=== PATIENT | male | born 1945 | race Caucasian/White ===

== ENCOUNTER 2020-04-20 13:53 | Outpatient (CLI) | payer MEDICARE, SELFPAY ==
--- NOTE | 2020-04-27 15:08 | WPDPFTINT ---
PFT Interpretation PFT Interpretation: DOS: 04/20/2020 REQUESTING: Dr Mitchell REASON FOR TESTING: shortness of breath PULMONARY FUNCTION TESTS Results are reliable and reproducible. Spirometry: FEV1 is 112%, FVC 93%, FEV1% all are normal. No airflow obstruction. No change with bronchodilator. Lung volumes: TLC 108%. Rv/TLC is increased indicating air trapping. Increased airway resistance. Diffusion: DLCO 111%, normal. Flow volume loop: Normal. IMPRESSION: Normal spirometry, air trapping is present which indicates an obstructive process. Normal diffusion. Lack of response to bronchodilator should not preclude use if clinically indicated. Radha Champagne MD
== END 2020-04-20 13:54 | disposition home or self-care (01) ==
LOC: ANHPFT 13:54
PROVIDERS: Visit Provider Family Medicine
DX: R06.02 Shortness of breath (principal)
CPT/HCPCS: 94060; 94726; 94729

== ENCOUNTER → 2020-05-12 13:44 | Outpatient (CLI) | payer MEDICARE, SELFPAY ==
--- NOTE | ~2020-05-12 | CT_ITS ---
EXAMINATION:CT chest wo con DATE: 05/12/2020 14:04 INDICATION: Shortness of breath. TECHNIQUE: Computed tomography (CT) of the chest was performed without intravenous contrast. Automate d exposure control and iterative reconstruction technique were employed. The dose-length product (DLP ) was 315.12 mGy-cm. COMPARISON: CT abdomen 01/02/2008 FINDINGS: There is mild scarring at the lung apices. Calcified lung nodules and calcified hilar and m ediastinal lymph nodes are consistent with old granulomatous disease. There is a 3 mm nodule at left major fissure, likely benign. There is a 4 mm nodule in right lower lobe, likely benign. No pleural e ffusion. The heart size is normal. No pericardial effusion. There are coronary artery calcifications. There is a small sliding hiatal hernia. There is mild chronic anterior wedging of multiple midthorac ic vertebral bodies. There is moderate thoracic spondylosis. IMPRESSION: 1. Small sliding hiatal hernia. Reviewed, dictated and finalized at location A.
== END ==
PROVIDERS: Visit Provider Family Medicine
DX: R06.02 Shortness of breath (principal); K44.9 Diaphragmatic hernia without obstruction or gangrene
CPT/HCPCS: 71250

== ENCOUNTER 2021-04-20 02:21 | Day surgery (SDC) | payer MEDICARE, SELFPAY ==
[2021-04-12 10:53] VITALS: BMI 25.7
--- NOTE | 2021-04-19 12:45 | PM.HPGS ---
History of Present Illness History of Present Illness Consent: Risks, benefits, and alternatives have been discussed and questions answered. Patient agrees to proceed with procedure. Chief complaint: neoplasm screening Z12.11 Narrative: Dawit Kuhn is a 75 year old male referred for colon cancer screening. He has had polyps removed in the past Review of Systems Review of Systems: All systems reviewed & are unremarkable except as noted in HPI and below PMFSH Past Medical History Medical History Depression Hyperlipidemia Hypertension Bonds's neuroma Surgical History Surgical History History of appendectomy Family History Family History Mother Hypertension Family history of coronary artery disease Father Family history of coronary artery disease Social History Social History Smoking status: Never smoker Second hand tobacco smoke exposure: No Alcohol intake: never Alcohol use details: social drinker Substance use: never Substance use type: does not use Living arrangements: with family Gender identity (if verbalized by the patient): Male Spiritual care concerns: No Meds Home Medications and Allergies Home Medications Medication Instructions Recorded Confirmed Type tadalafil 20 mg tablet 20 mg PO DAILY PRN 08/03/19 04/20/21 History lisinopril 40 mg tablet 40 mg PO DAILY #90 tablet 02/17/21 04/20/21 Rx amlodipine 5 mg PO DAILY 04/12/21 04/20/21 History pitavastatin calcium 2 mg PO Q48H 04/12/21 04/20/21 History sod sulf-pot chloride-mag sulf See Rx Instructions .ROUTE 04/13/21 Rx [Sutab] .COMPLEX #1 tablet Allergies Allergy/AdvReac Type Severity Reaction Status Date / Time No Known Allergies Allergy Unknown Verified 04/20/21 06:15 Exam Const: General: alert Orientation/consciousness: patient oriented x3 Resp: Auscultation: clear to auscultation bilaterally Cardio: Rhythm: regular rhythm GI: GI Palp: Yes Soft to palpation and No Tenderness to palpation present (GI) Neuro: General: patient oriented x3 Assessment and Plan Assessment and plan (1) Colon cancer screening: Code(s): Z12.11 - Encounter for screening for malignant neoplasm of colon Status: Acute Assessment and Plan: Colonoscopy with possible biopsy or polypectomy or cautery or injection of substances.
--- NOTE | 2021-04-19 13:23 | WPDANESEPPF ---
Anes - Initial Pre Proc Eval Procedure: Operation Date: 04/20/21 07:30 Proposed Procedures p Screening Colonoscopy - Mynor Carrasco MD Date/Time: 04/19/21 13:23 Surgeon: Mynor Carrasco MD Pre Op Diagnosis: neoplasm screening Z12.11 Patient Data Age: 75 Gender: M Height: 1.75 m Weight: 79 kg Allergies Allergy/AdvReac Type Severity Reaction Status Date / Time No Known Allergies Allergy Unknown Verified 04/20/21 06:15 Home Medications Medication Instructions Recorded Confirmed Type tadalafil 20 mg tablet 20 mg PO DAILY PRN 08/03/19 04/20/21 History lisinopril 40 mg tablet 40 mg PO DAILY #90 tablet 02/17/21 04/20/21 Rx amlodipine 5 mg PO DAILY 04/12/21 04/20/21 History pitavastatin calcium 2 mg PO Q48H 04/12/21 04/20/21 History sod sulf-pot chloride-mag sulf See Rx Instructions .ROUTE 04/13/21 Rx [Sutab] .COMPLEX #1 tablet Patient hx anesthesia problems: none Family hx anesthesia problems: none PMFSH Past Medical History Medical History (Updated 04/19/21 @ 13:24 by Glenn Gilbert DO) Depression Hyperlipidemia Hypertension Bonds's neuroma Surgical History Surgical History (Updated 04/19/21 @ 13:24 by Glenn Gilbert DO) History of appendectomy Family History Family History (Updated 04/08/14 @ 07:13 by DOCTOR UNKNOWN) Mother Hypertension Family history of coronary artery disease Father Family history of coronary artery disease Social History Social History Smoking status: Never smoker Second hand tobacco smoke exposure: No Alcohol intake: never Alcohol use details: social drinker Substance use: never Substance use type: does not use Living arrangements: with family Gender identity (if verbalized by the patient): Male Spiritual care concerns: No Anes - Eval Final PreProcedure Day of Procedure 04/19/21 13:23 Patient weight: overweight Heart: regular rate and rhythm Lungs: clear to auscultation and normal air movement Airway: Mallampati scale class II Neurological: alert and oriented Last oral intake: >/= 8 hours ASA classification: II Emergent: no Anesthetic plan: proceed Anesthesia type and monitoring: general GIVS and standard monitoring Informed Consent: The patient's anesthetic plan and its attendant risks and benefits were discussed with the patient/family/POA. Questions were solicited and answers provided to the satisfaction of the patient/family/POA.
[2021-04-20 06:16] VITALS: BP 176/92; PULSE 85; RESP 18; TEMP 36.4; O2SAT 99
[2021-04-20] MEDS: LACTATED RINGERS 1,000 ML 150 ML IV CONT (06:27)
[2021-04-20 07:43] VITALS: BP 98/54; PULSE 53; RESP 16; O2SAT 98
[2021-04-20 07:53] VITALS: BP 127/75; PULSE 54; RESP 20; O2SAT 99
[2021-04-20 08:03] VITALS: BP 131/77; PULSE 54; RESP 19; O2SAT 99
== END 2021-04-20 08:26 | disposition home or self-care (01) ==
PROVIDERS: PCP Family Medicine; Visit Provider Internal Medicine Gastroenterology
PROC: 0DJD8ZZ Inspection of Lower Intestinal Tract, Via Natural or Artificial Opening Endoscopic (ICD-10-PCS; CPT 45378; principal; 2021-04-20 07:30)
DX: Z12.11 Encounter for screening for malignant neoplasm of colon (principal); F32.9 Major depressive disorder, single episode, unspecified; E78.5 Hyperlipidemia, unspecified; I10 Essential (primary) hypertension
CPT/HCPCS: G0121; J2704; J7120

== ENCOUNTER 2024-03-05 09:07 | Day surgery (SDC) | payer MEDICARE, SELFPAY ==
[2024-02-24 15:22] VITALS: BMI 24.3
[2024-02-25 14:57] VITALS: BMI 23.8
[2024-03-05 09:59] VITALS: BP 153/87; PULSE 74; RESP 18; TEMP 36.7; O2SAT 99; BMI 23.8
[2024-03-05] MEDS: LACTATED RINGERS 1,000 ML 150 ML IV CONT (10:09)
--- NOTE | 2024-03-05 10:21 | P.PNAN_ITS ---
Anes - Initial Pre Proc Eval Procedure: Operation Date: 03/05/24 11:30 Proposed Procedures p Esophagogastroduodenoscopy - Billy Lewis MD Date/Time: 03/05/24 10:21 Surgeon: Billy Lewis MD Pre Op Diagnosis: Epigastric Pain Patient Data Age: 78 Gender: M Height: 1.75 m Weight: 73 kg Last Vital Signs Temp 36.7 C 03/05/24 09:59 Pulse 74 03/05/24 09:59 Resp 18 03/05/24 09:59 BP 153/87 H 03/05/24 09:59 Pulse Ox 99 03/05/24 09:59 O2 Del Method Room Air 03/05/24 09:59 Allergies Allergy/AdvReac Type Severity Reaction Status Date / Time No Known Allergies Allergy Unknown Verified 03/05/24 09:58 Home Medications Medication Instructions Recorded Confirmed Type tadalafil 20 mg tablet (Cialis) 20 mg PO DAILY PRN Erectile 08/03/19 03/05/24 History Dysfunction pitavastatin calcium 2 mg tablet 2 mg PO Q48H 04/12/21 03/05/24 History amlodipine 5 mg tablet 5 mg PO DAILY #90 tabs 05/17/21 03/05/24 Rx lisinopril 40 mg tablet See Rx Instructions .Route 08/26/23 03/05/24 Rx .COMPLEX #90 tabs Patient hx anesthesia problems: none Family hx anesthesia problems: none Results Review: All pre-operative results and documents have been reviewed as part of the pre- operative evaluation. [facility] Past Medical History Medical History Depression Hyperlipidemia Hypertension Bonds's neuroma Prostate cancer Surgical History Surgical History History of appendectomy Family History Family History Mother Hypertension Family history of coronary artery disease Father Family history of coronary artery disease Social History Social History Smoking status: Never smoker Second hand tobacco smoke exposure: No Alcohol intake: never Alcohol use details: social drinker Substance use: never Substance use type: does not use Living arrangements: alone Occupation/Education: retired Gender identity (if verbalized by the patient): Male Spiritual care concerns: No Anes - Eval Final PreProcedure Day of Procedure 03/05/24 10:21 Patient weight: normal Heart: regular rate and rhythm Lungs: clear to auscultation Airway: Mallampati scale class II Neurological: alert and oriented Last oral intake: >/= 8 hours ASA classification: III Emergent: no Anesthetic plan: proceed Anesthesia type and monitoring: general GIVS and standard monitoring Results Review: All pre-operative results and documents have been reviewed as part of the pre- operative evaluation. Informed Consent: The patient's anesthetic plan and its attendant risks and benefits were discussed with the patient/family/POA. Questions were solicited and answers provided to the satisfaction of the patient/family/POA.
--- NOTE | 2024-03-05 10:29 | P.HP_ITS ---
History of Present Illness History of Present Illness Consent: Risks, benefits, and alternatives have been discussed and questions answered. Patient agrees to proceed with procedure. Chief complaint: Epigastric Pain Narrative: Dawit Kuhn is a 78 year old male referred for EGD. Patient has had epigastric gnawing pain that has been present for about 1 year. States it is constantly present. Not specifically related to diet or activity nor bowel habits. Patient is any weight loss. He has had no bleeding. A CT scan performed for this reason while in [place] was reported as unremarkable and normal. It is not available for review. Patient tried Prilosec with no change in his pain. Patient presents today for EGD to assess epigastric pain more thoroughly. Family history is noncontributory. Review of Systems Review of Systems: All systems reviewed & are unremarkable except as noted in HPI and below PMFSH Past Medical History Medical History Depression Hyperlipidemia Hypertension Bonds's neuroma Prostate cancer Surgical History Surgical History History of appendectomy Family History Family History Mother Hypertension Family history of coronary artery disease Father Family history of coronary artery disease Social History Social History Smoking status: Never smoker Second hand tobacco smoke exposure: No Alcohol intake: never Alcohol use details: social drinker Substance use: never Substance use type: does not use Living arrangements: alone Occupation/Education: retired Gender identity (if verbalized by the patient): Male Spiritual care concerns: No Meds Home Medications and Allergies Home Medications Medication Instructions Recorded Confirmed Type tadalafil 20 mg tablet (Cialis) 20 mg PO DAILY PRN Erectile 08/03/19 03/05/24 History Dysfunction pitavastatin calcium 2 mg tablet 2 mg PO Q48H 04/12/21 03/05/24 History amlodipine 5 mg tablet 5 mg PO DAILY #90 tabs 05/17/21 03/05/24 Rx lisinopril 40 mg tablet See Rx Instructions .Route 08/26/23 03/05/24 Rx .COMPLEX #90 tabs Allergies Allergy/AdvReac Type Severity Reaction Status Date / Time No Known Allergies Allergy Unknown Verified 03/05/24 09:58 Vital Signs Vital Signs - 24 hr 03/05/24 09:59 Temperature 98.1 F Pulse Rate 74 Respiratory Rate 18 Blood Pressure 153/87 H Pulse Oximetry 99 Oxygen Delivery Room Air Exam Narrative: Physical exam reveals patient to be alert. Vital signs stable. HEENT exam is unremarkable. Patient is anicteric. Lungs are clear to auscultation and percussion. Heart is without murmur or extra sounds. Abdomen bowel sounds are present soft nontender wit no hepatosplenomegaly. Assessment and Plan Assessment and plan (1) Epigastric abdominal pain: Code(s): R10.13 - Epigastric pain Status: Acute Assessment and Plan: Patient has had epigastric pain for 1 year. Is very vague, gnawing -like in nature. Plan for EGD today.
[2024-03-05 10:46] VITALS: BP 143/77; PULSE 57; RESP 14; O2SAT 99
[2024-03-05 10:53] VITALS: BP 135/58; PULSE 58; RESP 16; O2SAT 99
--- NOTE | 2024-03-05 10:54 | WPDANESPN ---
Anes - Prog Note Post-Op Date/Time: 03/05/24 10:54 Cardiovascular status: normal Respiratory status: normal Airway patency: baseline Mental status: baseline Post-Op hydration status: normal Vital Signs: Last Vital Signs Temp 36.7 C 03/05/24 09:59 Pulse 57 L 03/05/24 10:46 Resp 14 03/05/24 10:46 BP 143/77 H 03/05/24 10:46 Pulse Ox 99 03/05/24 10:46 O2 Del Method Room Air 03/05/24 10:46 Pain Score (VAS): 0/10 I/O: Intake & Output 03/04/24 03/05/24 03/05/24 23:59 07:59 15:59 Intake Total 100 Balance 100 Patient Feedback: Patient satisfied with anesthetic care.
[2024-03-05 11:03] VITALS: BP 145/81; PULSE 57; RESP 20; O2SAT 98
== END 2024-03-05 11:09 | disposition home or self-care (01) ==
PROVIDERS: PCP Family Medicine; Visit Provider Internal Medicine Gastroenterology
PROC: 0DJ08ZZ Inspection of Upper Intestinal Tract, Via Natural or Artificial Opening Endoscopic (ICD-10-PCS; CPT 43235; principal; 2024-03-05 11:30)
DX: R10.13 Epigastric pain (principal); K22.2 Esophageal obstruction
CPT/HCPCS: 43450